=== PATIENT | male | born 1945 | race Two or more races ===

== ENCOUNTER 2020-03-16 11:28 | Inpatient (IN) | payer OTHER ==
[~2020-03-16] VITALS: Ht 170.2 cm; Wt 86.4 kg
[2020-03-16] MEDS ORDERED: SODIUM CHLORIDE 0.9% 1,000 ML IV ONE ×2 (11:45)
[2020-03-16] MEDS ORDERED: EPINEPHrine HCL 1 MG/1 ML AMP SC ONE (11:45)
[2020-03-16] MEDS ORDERED: methylPREDNISolone SOD SUCC 125 MG/2 ML VL IV ONE (11:45)
[2020-03-16 11:57] LABS: Basophils # (auto) 0 10 ^3/uL (0-0.2); Basophils % (auto) 0.1 % (0.0-2.0); Eosinophils # (auto) 0.4 10 ^3/uL (0-0.8); Eosinophils % (auto) 2.8 % (0.0-7.0); Hematocrit 45.6 % (41.0-53.0); Hemoglobin 15.6 g/dL (13.5-17.5); Lymphocytes # (auto) 0.2 10 ^3/uL (0.4-5.4); Lymphocytes % (auto) 1.6 % (10.0-50.0); Mean Corpuscular Hemoglobin 30.2 pg (28.0-32.0); Mean Corpuscular Hgb Conc. 34.1 g/dL (32.0-36.0); Mean Corpuscular Volume 88.5 fL (80.0-100.0); Monocytes # (auto) 0.3 10 ^3/uL (0-1.3); Neutrophils # (auto) 13.6 10 ^3/uL (1.6-8.6); Neutrophils % (auto) 93.5 % (37.0-80.0); Platelet Count (auto) 181 10^3/uL (140-450); Red Blood Cells 5.15 10^6/uL (4.5-5.90); Red Cell Distribution Width 13.5 % (11.8-14.3); White Blood Cell 14.5 10^3/uL (4.4-10.8)
[2020-03-16 12:17] LABS: Calcium 8.7 mg/dL (8.5-10.1); Potassium 5.5 mmol/L (3.5-5.1)
[2020-03-16 12:26] LABS: Albumin 3.2 g/dL (3.4-5.0); BUN/Creatinine Ratio 11.5; Bilirubin, Total 1.2 mg/dL (0.2-1.0)
[2020-03-16] MEDS ORDERED: IBUPROFEN 600 MG TAB PO ONE (13:15)
[2020-03-16] MEDS ORDERED: ENOXAPARIN SOD 80 MG/0.8ML SYRINGE SC ONE (13:15)
[2020-03-16 14:52] LABS: Urine Bacteria NONE SEEN /hpf (None Seen); Urine Blood TRACE /uL (Negative); Urine Hyaline Cast MOD /lpf (0 - 2); Urine Specific Gravity 1.015 (1.001-1.035); Urine WBC 2 /hpf (0 - 3)
[2020-03-16] MEDS ORDERED: ASPirin 81 mg TAB PO ONE (15:15)
[2020-03-16 15:33] LABS: INR 1.53 (0.9-1.15); Partial Thromboplastin Time 40.7 sec (23.0-31.2)
[2020-03-16] MEDS ORDERED: diphenhdrAMINE HCL 50 MG/1 ML VL IV PRN (16:15)
[2020-03-16] MEDS ORDERED: ALUM & MAG HYDROX-SIMETH LIQ(MAALOX) 30 ML PO PRN (16:15)
[2020-03-16] MEDS ORDERED: LORazepam 0.5 MG TAB PO PRN (16:15)
[2020-03-16] MEDS ORDERED: HYDROCORTISONE 2.5% TOPICAL CREAM 30GM TUBE TOP ONE (16:15)
[2020-03-16] MEDS ORDERED: AZITHROMYCIN 500MG/ 250ML 250 ML IV ONE (16:15)
[2020-03-16] MEDS ORDERED: CALCIUM GLUC 4.65meq/50ml D5AE 50 ML IV ONE (16:15)
[2020-03-16] MEDS ORDERED: MORPHINE SULF INJ 2 MG/ML SYRINGE 1ML IV PRN ×3 (16:15)
[2020-03-16] MEDS ORDERED: SODIUM CHLORIDE 0.9% 1,000 ML IV SCH (16:15)
[2020-03-16] MEDS ORDERED: NITROGLYCERIN 0.4 MG SL TAB SL PRN ×2 (16:15)
[2020-03-16] MEDS ORDERED: HYDROcodone-ACET 5/325MG TAB PO PRN (16:15)
[2020-03-16] MEDS ORDERED: ONDANSETRON HCL 4 MG/2 ML VIAL IV PRN (16:15)
[2020-03-16] MEDS ORDERED: DOCUSATE SOD 100 MG CAP PO PRN (16:15)
[2020-03-16] MEDS ORDERED: SODIUM ZIRCONIUM CYCL 10 GM PAK PO ONE (16:15)
[2020-03-16] MEDS ORDERED: ACETAMINOPHEN 325 MG TAB PO PRN (16:15)
[2020-03-16] MEDS ORDERED: InsuLIN REG 1unit/0.01ml Soln (100units/ml) IV ONE (16:15)
[2020-03-16] MEDS ORDERED: cefTRIAXone 1GM/50ML D5W 50 ML IV ONE (16:15)
[2020-03-16] MEDS ORDERED: DEXTROSE (50%) 50ML SYRG IV ONE (16:15)
[2020-03-16] MEDS ORDERED: ALBUTEROL SULF 2.5 MG/0.5ML(0.5%) NEB SOLN NEB ONE (16:15)
[2020-03-16 16:28] LABS: Cholesterol 80 mg/dL (< 200)
[2020-03-16 16:30] LABS: HDL Cholesterol 25 mg/dL (40-59); LDL Cholesterol 46 mg/dL (< 100); Triglycerides 118 mg/dL (< 150)
[2020-03-16] MEDS ORDERED: DEXTROSE (50%) 50ML SYRG IV PRN (16:30)
[2020-03-16] MEDS: InsuLIN REG 1unit/0.01ml Soln (100units/ml) SC SCH ×2 (17:00→23:01)
[2020-03-16 17:01] LABS: Alcohol, Urine < 3.0 mg/dL (0-10); Amphetamine Screen, Urine NEGATIVE (NEGATIVE); Barbiturate Scree,Urine NEGATIVE (NEGATIVE); Benzodiazephine Screen, Urine NEGATIVE (NEGATIVE); Cannabinoid Screen, Urine NEGATIVE (NEGATIVE); Cocaine Screen, Urine NEGATIVE (NEGATIVE); Opiate Scree,Urine NEGATIVE (NEGATIVE); Phencyclidine Screen, Urine NEGATIVE (NEGATIVE)
[2020-03-16] MEDS: ACCU-CHEK COMFORT CURVE STRIP VI SCH ×2 (17:10→23:00)
[2020-03-16] MEDS: hydrALAZINE HCL 10 MG TAB PO SCH (18:00)
[2020-03-16] MEDS: FUROSEMIDE 20 MG/2 ML VIAL IV SCH (18:00)
[2020-03-16] MEDS: ISOSORBIDE DINITRATE 10 MG TAB PO SCH (18:00)
[2020-03-16] MEDS: IPRATROPIUM BROM 0.5 MG/2.5ML INH SOL NEB SCH ×2 (18:50→22:01)
[2020-03-16 19:00] VITALS: BP 103/64
[2020-03-16 22:00] VITALS: BP 110/67
[2020-03-16] MEDS ORDERED: CARVEDILOL 3.125 MG TAB PO SCH (22:00)
[2020-03-16] MEDS ORDERED: ACETYLCYSTEINE ORAL for CIN 20%(200MG/ML) 4ML PO SCH (22:00)
[2020-03-16] MEDS: HYDROCORTISONE 2.5% TOPICAL CREAM 30GM TUBE TOP SCH (22:00)
[2020-03-16] MEDS ORDERED: ATORVASTATIN 20 MG TAB PO SCH (22:00)
[2020-03-16] MEDS: FAMOTIDINE 20 MG TAB PO SCH (22:58)
[2020-03-16] MEDS: predniSONE 20 MG TAB PO SCH (22:59)
[2020-03-16] MEDS: methylPREDNISolone SOD SUCC 40 MG/ML VL IV SCH (23:02)
[2020-03-16 23:44] VITALS: BP 110/67
[2020-03-17] MEDS: SODIUM CHLORIDE 0.9% 1,000 ML IV SCH ×3 (00:56→20:30)
[2020-03-17] MEDS: IPRATROPIUM BROM 0.5 MG/2.5ML INH SOL NEB SCH ×6 (01:53→22:30)
[2020-03-17 03:24] LABS: Urine Amorphous Crystal FEW /hpf (None Seen); Urine Bacteria FEW /hpf (None Seen); Urine Blood 2+ /uL (Negative); Urine Specific Gravity 1.016 (1.001-1.035); Urine WBC 1 /hpf (0 - 3)
[2020-03-17] MEDS ORDERED: METF-370 PO (04:38)
[2020-03-17] MEDS ORDERED: ASPI-543 PO (04:38)
[2020-03-17] MEDS ORDERED: ISOS30TA4 PO (04:38)
[2020-03-17] MEDS ORDERED: ATOR40TA52 PO (04:38)
[2020-03-17] MEDS ORDERED: MULT-1058 PO (04:38)
[2020-03-17] MEDS ORDERED: CLOP75TA28 PO (04:38)
[2020-03-17] MEDS ORDERED: LISI2.5T47 PO (04:45)
[2020-03-17 05:00] VITALS: BP 112/68
[2020-03-17] MEDS: hydrALAZINE HCL 10 MG TAB PO SCH ×5 (05:36→23:42)
[2020-03-17] MEDS: ISOSORBIDE DINITRATE 10 MG TAB PO SCH ×3 (05:37→17:38)
[2020-03-17] MEDS: methylPREDNISolone SOD SUCC 40 MG/ML VL IV SCH ×3 (05:47→22:26)
[2020-03-17] MEDS: FUROSEMIDE 20 MG/2 ML VIAL IV SCH ×2 (05:48→17:37)
[2020-03-17] MEDS: ACCU-CHEK COMFORT CURVE STRIP VI SCH ×4 (05:49→22:16)
[2020-03-17] MEDS: InsuLIN REG 1unit/0.01ml Soln (100units/ml) SC SCH ×4 (05:50→22:24)
[2020-03-17] MEDS: ALBUTEROL SULF 2.5 MG/0.5ML(0.5%) NEB SOLN NEB PRN ×2 (06:24→14:53)
[2020-03-17 06:28] LABS: Basophils # (auto) 0 10 ^3/uL (0-0.2); Basophils % (auto) 0.3 % (0.0-2.0); Eosinophils # (auto) 0.3 10 ^3/uL (0-0.8); Eosinophils % (auto) 2.2 % (0.0-7.0); Hematocrit 41.4 % (41.0-53.0); Hemoglobin 14.5 g/dL (13.5-17.5); Lymphocytes # (auto) 0.7 10 ^3/uL (0.4-5.4); Lymphocytes % (auto) 4.8 % (10.0-50.0); Mean Corpuscular Hemoglobin 30.7 pg (28.0-32.0); Mean Corpuscular Hgb Conc. 34.9 g/dL (32.0-36.0); Monocytes # (auto) 0.4 10 ^3/uL (0-1.3); Monocytes % (auto) 2.5 % (0.0-12.0); Neutrophils # (auto) 13.1 10 ^3/uL (1.6-8.6); Neutrophils % (auto) 90.2 % (37.0-80.0); Platelet Count (auto) 185 10^3/uL (140-450); Red Blood Cells 4.71 10^6/uL (4.5-5.90); Red Cell Distribution Width 13.7 % (11.8-14.3); White Blood Cell 14.5 10^3/uL (4.4-10.8)
[2020-03-17 06:42] LABS: INR 1.23 (0.9-1.15)
[2020-03-17 06:44] LABS: Calcium 8.9 mg/dL (8.5-10.1); Potassium 4.3 mmol/L (3.5-5.1)
[2020-03-17 06:48] LABS: BUN/Creatinine Ratio 17.2
[2020-03-17] MEDS ORDERED: HEPARIN IN NS 1000Units/500mL 0 ML ONE (07:30)
[2020-03-17] MEDS ORDERED: IOHEXOL 350 MG/ML 100ML IJ ONE ×2 (07:30→10:49)
[2020-03-17] MEDS ORDERED: LIDOCAINE 2%HCL (LOCAL ANESTH.) INJ 20ML MDV ONE ×2 (07:30→10:49)
[2020-03-17 08:36] VITALS: BP 117/74
[2020-03-17] MEDS ORDERED: ASPirin 81 mg TAB PO SCH (10:00)
[2020-03-17] MEDS: ASPirin 81 mg TAB PO SCH (10:00)
[2020-03-17] MEDS ORDERED: fentaNYL CITRATE 100 MCG/2 ML VL ONE (10:48)
[2020-03-17] MEDS ORDERED: ANGIOMAX 250 MG VIAL IV ONE (10:48)
[2020-03-17] MEDS ORDERED: HEPARIN SODIUM (PORCINE) 5000 UNITS/ML 1ML VIAL ONE (10:48)
[2020-03-17] MEDS ORDERED: VERAPAMIL 2.5MG/ML INJ 2ML VIAL IV ONE (10:48)
[2020-03-17] MEDS ORDERED: SODIUM CHL 0.9% 50 ML ONE (10:49)
[2020-03-17] MEDS ORDERED: MIDAZOLAM HCL 1MG/1ML-2 ML VIAL ONE (10:49)
[2020-03-17] MEDS ORDERED: IODIXANOL 320MG/ML 100ML BTL IV ONE ×2 (12:17→12:26)
[2020-03-17] MEDS ORDERED: TICAGRELOR 90 MG TAB ONE (13:07)
[2020-03-17] MEDS ORDERED: ASPirin 325 MG TAB ONE (13:13)
[2020-03-17 14:40] VITALS: BP 131/76
[2020-03-17] MEDS ORDERED: ASPirin-EC 81 mg tab PO ONE (14:45)
[2020-03-17] MEDS: predniSONE 20 MG TAB PO SCH ×2 (14:50→22:26)
[2020-03-17] MEDS: AZITHROMYCIN 500MG/ 250ML 250 ML IV SCH (14:50)
[2020-03-17] MEDS: cefTRIAXone 1GM/50ML D5W 50 ML IV SCH (14:50)
[2020-03-17] MEDS: FAMOTIDINE 20 MG TAB PO SCH (14:50)
[2020-03-17] MEDS: HYDROCORTISONE 2.5% TOPICAL CREAM 30GM TUBE TOP SCH ×2 (14:51→22:28)
[2020-03-17 16:31] VITALS: BP 115/68
[2020-03-17] MEDS ORDERED: CARVEDILOL 3.125 MG TAB PO SCH (22:00)
[2020-03-17] MEDS: ATORVASTATIN 20 MG TAB PO SCH (22:27)
[2020-03-17] MEDS: TICAGRELOR 90 MG TAB PO SCH (22:28)
[2020-03-17 22:45] VITALS: BP 107/78
[2020-03-18 00:52] VITALS: BP 118/74
[2020-03-18] MEDS: IPRATROPIUM BROM 0.5 MG/2.5ML INH SOL NEB SCH ×6 (02:09→22:55)
[2020-03-18] MEDS: SODIUM CHLORIDE 0.9% 1,000 ML IV SCH ×2 (02:43→16:18)
[2020-03-18 05:31] LABS: Basophils # (auto) 0 10 ^3/uL (0-0.2); Basophils % (auto) 0.1 % (0.0-2.0); Eosinophils # (auto) 0.5 10 ^3/uL (0-0.8); Eosinophils % (auto) 3.6 % (0.0-7.0); Hematocrit 41.3 % (41.0-53.0); Hemoglobin 14.1 g/dL (13.5-17.5); Lymphocytes # (auto) 0.9 10 ^3/uL (0.4-5.4); Lymphocytes % (auto) 7.3 % (10.0-50.0); Mean Corpuscular Hgb Conc. 34.1 g/dL (32.0-36.0); Mean Corpuscular Volume 88.2 fL (80.0-100.0); Monocytes # (auto) 0.5 10 ^3/uL (0-1.3); Monocytes % (auto) 3.6 % (0.0-12.0); Neutrophils # (auto) 11.1 10 ^3/uL (1.6-8.6); Neutrophils % (auto) 85.4 % (37.0-80.0); Platelet Count (auto) 184 10^3/uL (140-450); Red Blood Cells 4.68 10^6/uL (4.5-5.90); Red Cell Distribution Width 13.8 % (11.8-14.3)
[2020-03-18] MEDS: hydrALAZINE HCL 10 MG TAB PO SCH ×3 (05:43→17:41)
[2020-03-18] MEDS: methylPREDNISolone SOD SUCC 40 MG/ML VL IV SCH ×3 (05:44→22:01)
[2020-03-18] MEDS: FUROSEMIDE 20 MG/2 ML VIAL IV SCH ×2 (05:44→17:41)
[2020-03-18 05:45] VITALS: BP 121/76
[2020-03-18 05:46] LABS: INR 1.08 (0.9-1.15); Partial Thromboplastin Time 32.5 sec (23.0-31.2)
[2020-03-18 05:52] LABS: Albumin 2.9 g/dL (3.4-5.0); Magnesium 2.2 mg/dL (1.6-2.6); Potassium 4.1 mmol/L (3.5-5.1)
[2020-03-18 05:56] LABS: BUN/Creatinine Ratio 24.4; Bilirubin, Total 0.6 mg/dL (0.2-1.0); Phosphorus 3.2 mg/dL (2.5-4.90); Total Protein 6.2 g/dL (6.4-8.2)
[2020-03-18] MEDS: ACCU-CHEK COMFORT CURVE STRIP VI SCH ×4 (06:47→22:02)
[2020-03-18] MEDS: InsuLIN REG 1unit/0.01ml Soln (100units/ml) SC SCH ×4 (06:48→22:04)
[2020-03-18] MEDS: ISOSORBIDE DINITRATE 10 MG TAB PO SCH ×3 (06:49→17:41)
[2020-03-18] MEDS: cefTRIAXone 1GM/50ML D5W 50 ML IV SCH (08:34)
[2020-03-18 08:48] VITALS: BP 122/66
[2020-03-18] MEDS: FAMOTIDINE 20 MG TAB PO SCH (09:02)
[2020-03-18] MEDS: TICAGRELOR 90 MG TAB PO SCH ×2 (09:02→22:02)
[2020-03-18] MEDS: ASPirin 81 mg TAB PO SCH (09:02)
[2020-03-18] MEDS: AZITHROMYCIN 500MG/ 250ML 250 ML IV SCH (09:02)
[2020-03-18] MEDS: METOPROLOL SUCCINATE XL 50 MG TAB PO SCH (09:03)
[2020-03-18] MEDS: LOSARTAN POTASSIUM 50 MG TAB PO SCH (09:03)
[2020-03-18] MEDS: predniSONE 20 MG TAB PO SCH ×2 (09:03→22:02)
[2020-03-18] MEDS: HYDROCORTISONE 2.5% TOPICAL CREAM 30GM TUBE TOP SCH ×2 (09:03→22:02)
[2020-03-18] MEDS: ALBUTEROL SULF 2.5 MG/0.5ML(0.5%) NEB SOLN NEB PRN ×3 (11:03→19:02)
[2020-03-18 12:44] VITALS: BP 126/78
[2020-03-18 17:06] VITALS: BP 122/77
[2020-03-18 22:00] VITALS: BP 127/88
[2020-03-18] MEDS: ATORVASTATIN 20 MG TAB PO SCH (22:02)
[2020-03-19] MEDS: hydrALAZINE HCL 10 MG TAB PO SCH ×4 (00:18→22:24)
[2020-03-19] MEDS: ALBUTEROL SULF 2.5 MG/0.5ML(0.5%) NEB SOLN NEB PRN ×5 (00:33→22:08)
[2020-03-19] MEDS: IPRATROPIUM BROM 0.5 MG/2.5ML INH SOL NEB SCH ×6 (01:59→22:08)
[2020-03-19] MEDS: SODIUM CHLORIDE 0.9% 1,000 ML IV SCH ×3 (02:39→22:30)
[2020-03-19 05:00] VITALS: BP 116/76
[2020-03-19] MEDS: FUROSEMIDE 20 MG/2 ML VIAL IV SCH ×2 (05:56→17:32)
[2020-03-19] MEDS: methylPREDNISolone SOD SUCC 40 MG/ML VL IV SCH ×3 (05:56→22:24)
[2020-03-19 06:22] LABS: BUN/Creatinine Ratio 24.3; Calcium 9.3 mg/dL (8.5-10.1); Potassium 3.9 mmol/L (3.5-5.1)
[2020-03-19] MEDS: ACCU-CHEK COMFORT CURVE STRIP VI SCH ×4 (06:54→22:25)
[2020-03-19] MEDS: ISOSORBIDE DINITRATE 10 MG TAB PO SCH ×3 (06:54→17:33)
[2020-03-19] MEDS: InsuLIN REG 1unit/0.01ml Soln (100units/ml) SC SCH ×3 (06:57→16:44)
[2020-03-19] MEDS: cefTRIAXone 1GM/50ML D5W 50 ML IV SCH (08:24)
[2020-03-19 09:00] VITALS: BP 124/76
[2020-03-19] MEDS: AZITHROMYCIN 500MG/ 250ML 250 ML IV SCH (09:22)
[2020-03-19] MEDS: FAMOTIDINE 20 MG TAB PO SCH (09:22)
[2020-03-19] MEDS: predniSONE 20 MG TAB PO SCH ×2 (09:23→22:24)
[2020-03-19] MEDS: METOPROLOL SUCCINATE XL 50 MG TAB PO SCH (09:23)
[2020-03-19] MEDS: ASPirin 81 mg TAB PO SCH (09:23)
[2020-03-19] MEDS: HYDROCORTISONE 2.5% TOPICAL CREAM 30GM TUBE TOP SCH ×2 (09:23→22:25)
[2020-03-19] MEDS: LOSARTAN POTASSIUM 50 MG TAB PO SCH (09:23)
[2020-03-19] MEDS: TICAGRELOR 90 MG TAB PO SCH ×2 (10:02→22:25)
[2020-03-19] MEDS ORDERED: DEXTROSE (50%) 50ML SYRG IV PRN (11:30)
[2020-03-19] MEDS ORDERED: InsuLIN REG 1unit/0.01ml Soln (100units/ml) SC ONE (11:30)
[2020-03-19 13:00] VITALS: BP 128/73
[2020-03-19 17:00] VITALS: BP 132/74
[2020-03-19 22:00] VITALS: BP 128/81
[2020-03-19] MEDS ORDERED: InsuLIN REG 1unit/0.01ml Soln (100units/ml) SC SCH (22:00)
[2020-03-19] MEDS: ATORVASTATIN 20 MG TAB PO SCH (22:24)
[2020-03-20] MEDS: IPRATROPIUM BROM 0.5 MG/2.5ML INH SOL NEB SCH ×3 (02:00→10:00)
[2020-03-20 03:50] VITALS: BP 130/79
[2020-03-20 05:00] VITALS: BP 124/78
[2020-03-20] MEDS: ALBUTEROL SULF 2.5 MG/0.5ML(0.5%) NEB SOLN NEB PRN (05:38)
[2020-03-20 06:17] LABS: Basophils # (auto) 0 10 ^3/uL (0-0.2); Basophils % (auto) 0.1 % (0.0-2.0); Eosinophils # (auto) 0.2 10 ^3/uL (0-0.8); Eosinophils % (auto) 1.5 % (0.0-7.0); Hematocrit 38.7 % (41.0-53.0); Hemoglobin 13.2 g/dL (13.5-17.5); Lymphocytes # (auto) 1.4 10 ^3/uL (0.4-5.4); Lymphocytes % (auto) 11.2 % (10.0-50.0); Mean Corpuscular Hemoglobin 30.4 pg (28.0-32.0); Mean Corpuscular Hgb Conc. 34.1 g/dL (32.0-36.0); Mean Corpuscular Volume 89.1 fL (80.0-100.0); Monocytes % (auto) 8.2 % (0.0-12.0); Nucleated Red Blood Cells % 0.1 %; Platelet Count (auto) 207 10^3/uL (140-450); Red Blood Cells 4.34 10^6/uL (4.5-5.90); Red Cell Distribution Width 13.7 % (11.8-14.3); White Blood Cell 12.7 10^3/uL (4.4-10.8)
[2020-03-20 06:29] LABS: Calcium 8.9 mg/dL (8.5-10.1); Potassium 4.4 mmol/L (3.5-5.1)
[2020-03-20 06:38] LABS: Albumin 2.8 g/dL (3.4-5.0); BUN/Creatinine Ratio 23.3; Bilirubin, Total 0.5 mg/dL (0.2-1.0)
[2020-03-20] MEDS: FUROSEMIDE 20 MG/2 ML VIAL IV SCH (06:39)
[2020-03-20] MEDS: hydrALAZINE HCL 10 MG TAB PO SCH (06:39)
[2020-03-20] MEDS: methylPREDNISolone SOD SUCC 40 MG/ML VL IV SCH (06:39)
[2020-03-20] MEDS: ISOSORBIDE DINITRATE 10 MG TAB PO SCH (06:39)
[2020-03-20] MEDS: InsuLIN REG 1unit/0.01ml Soln (100units/ml) SC SCH (07:03)
[2020-03-20] MEDS: ACCU-CHEK COMFORT CURVE STRIP VI SCH (07:03)
[2020-03-20 08:00] VITALS: BP 132/83
[2020-03-20] MEDS: SODIUM CHLORIDE 0.9% 1,000 ML IV SCH (08:30)
[2020-03-20 09:00] VITALS: BP 120/76
[2020-03-20] MEDS: cefTRIAXone 1GM/50ML D5W 50 ML IV SCH (09:00)
[2020-03-20 09:27] VITALS: BP 120/70
[2020-03-20] MEDS: LOSARTAN POTASSIUM 50 MG TAB PO SCH (10:00)
[2020-03-20] MEDS: HYDROCORTISONE 2.5% TOPICAL CREAM 30GM TUBE TOP SCH (10:00)
[2020-03-20] MEDS: AZITHROMYCIN 500MG/ 250ML 250 ML IV SCH (10:00)
[2020-03-20] MEDS: FAMOTIDINE 20 MG TAB PO SCH (10:00)
[2020-03-20] MEDS: TICAGRELOR 90 MG TAB PO SCH (10:00)
[2020-03-20] MEDS: ASPirin 81 mg TAB PO SCH (10:00)
[2020-03-20] MEDS: METOPROLOL SUCCINATE XL 50 MG TAB PO SCH (10:00)
[2020-03-20] MEDS: predniSONE 20 MG TAB PO SCH (10:00)
== END 2020-03-20 11:15 | disposition home or self-care (01) | DRG 246 ==
LOC: EDBD 11:28 → ER 11:28 → TELE 11:29 → TELE-CENTR 21:30
PROVIDERS: ADMIT Hospitalist; ATTEND Family Medicine
PROC: 4A023N7 Measurement of Cardiac Sampling and Pressure, Left Heart, Percutaneous Approach (ICD-10-PCS; principal; 2020-03-17)
PROC: 027135Z Dilation of Coronary Artery, Two Arteries with Two Drug-eluting Intraluminal Devices, Percutaneous Approach (ICD-10-PCS; 2020-03-17)
PROC: B211YZZ Fluoroscopy of Multiple Coronary Arteries using Other Contrast (ICD-10-PCS; 2020-03-17)
PROC: B215YZZ Fluoroscopy of Left Heart using Other Contrast (ICD-10-PCS; 2020-03-17)
DX: I21.4 Non-ST elevation (NSTEMI) myocardial infarction (principal); R57.0 Cardiogenic shock; N39.0 Urinary tract infection, site not specified; N17.9 Acute kidney failure, unspecified; E44.1 Mild protein-calorie malnutrition; E87.1 Hypo-osmolality and hyponatremia; I13.0 Hypertensive heart and chronic kidney disease with heart failure and stage 1 through stage 4 chronic kidney disease, or unspecified chronic kidney disease; Z20.828 Contact with and (suspected) exposure to other viral communicable diseases; I95.9 Hypotension, unspecified; E87.5 Hyperkalemia; N18.9 Chronic kidney disease, unspecified; E66.9 Obesity, unspecified; D72.829 Elevated white blood cell count, unspecified; E11.22 Type 2 diabetes mellitus with diabetic chronic kidney disease; R21 Rash and other nonspecific skin eruption; E78.5 Hyperlipidemia, unspecified; I25.10 Atherosclerotic heart disease of native coronary artery without angina pectoris; T46.4X5A Adverse effect of angiotensin-converting-enzyme inhibitors, initial encounter; I50.9 Heart failure, unspecified; B96.20 Unspecified Escherichia coli [E. coli] as the cause of diseases classified elsewhere; Z68.30 Body mass index [BMI] 30.0-30.9, adult; Y92.89 Other specified places as the place of occurrence of the external cause; Z79.02 Long term (current) use of antithrombotics/antiplatelets; Z79.84 Long term (current) use of oral hypoglycemic drugs; Z82.0 Family history of epilepsy and other diseases of the nervous system; Z82.49 Family history of ischemic heart disease and other diseases of the circulatory system; Z91.81 History of falling; Z95.5 Presence of coronary angioplasty implant and graft
CPT/HCPCS: 36415; 36600; 71045; 76775; 80048; 80053; 80061; 80307; 81001; 82570; 82805; 82962; 83036; 83735; 83880; 84100; 84132; 84156; 84484; 85025; 85610; 85730; 86850; 86900; 86901; 87040; 87081; 87086; 87088; 87186; 87426; 92928; 93005; 93306; 93458; 94640; 96361; 96372; 96374; 99152; 99153; C1874; C1887; G0378; J0171; J0610; J0696; J1815; J2250; Q9967